=== PATIENT | male | born 1970 | race African-American/Black ===

== ENCOUNTER 2017-09-12 15:01 | Emergency (ER) | payer MEDICAID ==
[~2017-09-12] VITALS: Ht 175.3 cm; Wt 80.0 kg
[2017-09-12] MEDS ORDERED: LORAZEPAM 0.5MG TABLET PO ONE (21:00)
[2017-09-12 21:30] VITALS: BP 132/73
== END 2017-09-12 21:31 | disposition home or self-care (01) ==
LOC: ER 15:31
DX: F41.9 Anxiety disorder, unspecified (principal)
CPT/HCPCS: 99283

== ENCOUNTER 2025-06-06 23:08 | Emergency (ER) | payer MEDICAID ==
[~2025-06-06] VITALS: Ht 188 cm; Wt 107.7 kg
[2025-06-06 23:10] VITALS: TEMP 36.9; O2SAT 98
[2025-06-06] MEDS: ACETAMINOPHEN 500MG TABLET PO ONE (23:39)
[2025-06-07] MEDS ORDERED: IBUP-2029 MT (01:16)
[2025-06-07 01:52] VITALS: BP 113/78; PULSE 86; RESP 18; O2SAT 98
== END 2025-06-07 01:55 | disposition home or self-care (01) ==
LOC: ER 23:09
DX: S80.01XA Contusion of right knee, initial encounter (principal); S60.221A Contusion of right hand, initial encounter; S09.90XA Unspecified injury of head, initial encounter; W19.XXXA Unspecified fall, initial encounter; Y93.89 Activity, other specified; Y92.89 Other specified places as the place of occurrence of the external cause; Y99.8 Other external cause status
CPT/HCPCS: 29505; 73130; 73562; 99284